=== PATIENT | male | born 1985 | race African-American/Black ===

== ENCOUNTER 2018-10-04 02:44 | Emergency (ER) | payer OTHER ==
[~2018-10-04] VITALS: Ht 185.4 cm; Wt 86.2 kg
[2018-10-04] MEDS ORDERED: PEPCID20 MG PO (02:50)
[2018-10-04] MEDS ORDERED: DIPHENHIST50 MG PO (02:50)
[2018-10-04] MEDS ORDERED: EPIPEN 2-P0.3 MG/0.3 IM (03:12)
[2018-10-04] MEDS ORDERED: PREDNISONE 20 M20 MG PO (03:12)
[2018-10-04 04:20] VITALS: BP 141/77
== END 2018-10-04 04:20 | disposition home or self-care (01) ==
LOC: ER 02:44
DX: L50.9 Urticaria, unspecified (principal); T78.1XXA Other adverse food reactions, not elsewhere classified, initial encounter; F10.10 Alcohol abuse, uncomplicated; Z79.899 Other long term (current) drug therapy; X58.XXXA Exposure to other specified factors, initial encounter